=== PATIENT | female | born 1970 | race Caucasian/White ===

== ENCOUNTER 2021-08-05 18:48 | Inpatient (IN) ==
[2021-08-05 20:07] LABS: Bacteria,Urine Few per hpf (None-Few); Bilirubin,Urine Negative (Negative); Blood,Urine Moderate (Negative); Clarity,Urine Turbid (Clear); Color,Urine Light-Yellow (Yellow); Glucose,Urine (UA) 150 mg/dL (Normal); Ketones,Urine Negative (Negative); Leukocyte Esterase,Urine Large (Negative); Nitrite,Urine Negative (Negative); Protein,Urine Negative (Neg-Trace); Specific Gravity,Urine 1.006 (1.010-1.025); Squamous Epithelial Cell,Urine Few per hpf (None-Few); Transitional Epi Cells,Urine Few per hpf (None-Few); Urobilinogen,Urine Normal (Normal); WBC,Urine 50-100 per hpf (0-3)
[2021-08-05] MEDS ORDERED: Isovue-370 500 ML BOTTLE IVP ONE (21:16)
[2021-08-05] MEDS ORDERED: 0.9 % Sodium Chloride 1,000 ML IV ONE (21:16)
[2021-08-05] MEDS ORDERED: Ketorolac 30 MG/ML VIAL IVP ONE (21:18)
[2021-08-05] MEDS ORDERED: Ondansetron 4 MG/2 ML VIAL IVP ONE (21:18)
[2021-08-05] MEDS ORDERED: cefTRIAXone 1,000 MG in Water for inj. (sterile) 10 ML IVP ONE (21:27)
[2021-08-05 21:53] LABS: Basophils % 0.4 %; Eosinophils # 0.1 K/mcL (0.0-0.6); Eosinophils % 0.7 %; Hematocrit 49.5 % (35.3-44.9); Hemoglobin 16.1 g/dL (11.5-15.4); Immature Granulocytes % 0.9 % (0-4); Lymphocytes # 1.8 K/mcL (0.6-4.6); Lymphocytes % 16.6 %; Mean Corpuscular HGB Conc 32.5 g/dL (31.6-35.5); Mean Corpuscular Hemoglobin 29.6 pg (28.0-33.3); Mean Platelet Volume 10.4 fL (9.4-12.4); Monocytes # 0.9 K/mcL (0.0-1.3); Monocytes % 7.8 %; Neutrophils # 8.2 K/mcL (1.6-8.9); Platelet Count 270 K/mcL (140-400); Red Blood Count 5.44 M/mcL (3.82-4.97); Segmented Neutrophils % 73.6 %; White Blood Count 11.1 K/mcL (4.3-11.1)
[2021-08-05 22:11] LABS: Alanine Aminotransferase 20 Units/L (7-52); Albumin 4.3 g/dL (3.5-5.7); Albumin/Globulin Ratio 1.4 (1.1-2.2); Alkaline Phosphatase 71 Units/L (34-104); Aspartate Amino Transferase 12 Units/L (13-39); BUN/Creatinine Ratio 22 (6-26); Bilirubin,Total 0.5 mg/dL (0.3-1.0); Blood Urea Nitrogen 17 mg/dL (6-20); Calcium 9.7 mg/dL (8.6-10.3); Carbon Dioxide 23 mEq/L (23-29); Chloride 102 mEq/L (98-107); Glucose 240 mg/dL (70-105); Osmolality,Calculated 291 (280-300); Potassium 4.3 mEq/L (3.5-5.1); Sodium 136 mEq/L (136-145); Total Protein 7.3 g/dL (6.4-8.9); eGFR For African Americans > 60 (> 60); eGFR For Non-African Americans > 60 (> 60)
[2021-08-06] MEDS ORDERED: Ketorolac 30 MG/ML VIAL IVP PRN (04:18)
[2021-08-06] MEDS ORDERED: *HR* HYDROmorphone 2 MG TABLET PO PRN ×2 (04:18→14:22)
[2021-08-06] MEDS ORDERED: Dextrose Gel 15 GM/37.5 ML TUBE PO PRN ×4 (04:19→14:22)
[2021-08-06] MEDS ORDERED: D5% in Water 1,000 ML IVC PRN ×2 (04:19→14:22)
[2021-08-06] MEDS ORDERED: *HR* Dextrose 50 % in Water (Syg) 50 ML SYRINGE IVP PRN ×2 (04:19→14:22)
[2021-08-06] MEDS ORDERED: Naloxone 0.4 MG/ML INJ IVP PRN ×2 (04:20→14:22)
[2021-08-06] MEDS ORDERED: Acetaminophen 325 MG TABLET PO PRN (04:20)
[2021-08-06] MEDS ORDERED: Ondansetron 4 MG/2 ML VIAL IVP PRN ×2 (04:20→14:22)
[2021-08-06] MEDS: Insulin LISPRO 300 UNITS/3 ML VIAL SUBQ SCH ×4 (05:48→20:14)
[2021-08-06 06:44] LABS: Estimated Average Glucose 269 mg/dl
[2021-08-06] MEDS ORDERED: Venlafaxine XR (24 HR) 150 MG CAP.ER.24H PO SCH (09:00)
[2021-08-06] MEDS ORDERED: cefTRIAXone 1,000 MG in 0.9 % Sodium Chloride Mini Bag 100 ML IVPB SCH (09:00)
[2021-08-06] MEDS ORDERED: Potassium Citrate 10 MEQ TABLET.ER PO SCH (09:00)
[2021-08-06] MEDS ORDERED: Loratadine 10 MG TABLET PO SCH (09:00)
[2021-08-06] MEDS ORDERED: *HR* FentaNYL (PF) 100 MCG/2 ML VIAL IVP PRN (11:35)
[2021-08-06] MEDS ORDERED: *HR* HYDROmorphone PF 0.5 MG/0.5 ML SYRINGE IVP PRN (11:35)
[2021-08-06] MEDS ORDERED: Lidocaine -MPF 2% 5 ML VIAL ONE (11:53)
[2021-08-06] MEDS ORDERED: *HR* Midazolam HCl 2 MG/2 ML VIAL ONE (11:53)
[2021-08-06] MEDS ORDERED: *HR* Propofol 200 MG/20 ML VIAL IVP ONE (11:53)
[2021-08-06] MEDS ORDERED: Ondansetron 4 MG/2 ML VIAL ONE (11:54)
[2021-08-06] MEDS ORDERED: Isovue-300 50ML VIAL ONE (12:01)
[2021-08-06] MEDS ORDERED: Acetaminophen IV 1,000 MG/100 ML BAG IVPB ONE (12:04)
[2021-08-06] MEDS: Ketorolac 30 MG/ML VIAL IVP PRN ×2 (16:24→22:57)
[2021-08-06] MEDS ORDERED: Insulin LISPRO 300 UNITS/3 ML VIAL SUBQ SCH (18:00)
[2021-08-06] MEDS: cefTRIAXone 1,000 MG in 0.9 % Sodium Chloride Mini Bag 100 ML IVPB SCH (19:39)
[2021-08-06] MEDS: hydrOXYzine pamoate 25 MG CAPSULE PO SCH (19:39)
[2021-08-06] MEDS: Potassium Citrate 10 MEQ TABLET.ER PO SCH (19:44)
[2021-08-06] MEDS: Acetaminophen 325 MG TABLET PO PRN (19:44)
[2021-08-06] MEDS ORDERED: hydrOXYzine pamoate 25 MG CAPSULE PO SCH (21:00)
[2021-08-07 01:17] LABS: Hematocrit 45.4 % (35.3-44.9); Mean Corpuscular HGB Conc 31.5 g/dL (31.6-35.5); Mean Corpuscular Hemoglobin 29.4 pg (28.0-33.3); Mean Corpuscular Volume 93.4 fL (83.0-100.0); Mean Platelet Volume 10.1 fL (9.4-12.4); Platelet Count 261 K/mcL (140-400); Red Blood Count 4.86 M/mcL (3.82-4.97); Red Cell Distribution Width 13.9 % (11.5-14.5); White Blood Count 9.9 K/mcL (4.3-11.1)
[2021-08-07 01:19] LABS: Hemoglobin 14.3 g/dL (11.5-15.4)
[2021-08-07 01:45] LABS: BUN/Creatinine Ratio 26 (6-26); Blood Urea Nitrogen 24 mg/dL (6-20); Calcium 8.9 mg/dL (8.6-10.3); Carbon Dioxide 22 mEq/L (23-29); Chloride 102 mEq/L (98-107); Chol/HDL Ratio 4.5 (0-4.9); Cholesterol 180 mg/dL (< 200); Glucose 440 mg/dL (70-105); HDL Cholesterol 40 mg/dL (40-59); Magnesium 1.9 mg/dL (1.6-2.6); Osmolality,Calculated 303 (280-300); Potassium 4.2 mEq/L (3.5-5.1); Sodium 135 mEq/L (136-145); Triglycerides 463 mg/dL (< 150); eGFR For African Americans > 60 (> 60); eGFR For Non-African Americans > 60 (> 60)
[2021-08-07] MEDS: Venlafaxine XR (24 HR) 150 MG CAP.ER.24H PO SCH (08:21)
[2021-08-07] MEDS: Potassium Citrate 10 MEQ TABLET.ER PO SCH ×2 (08:21→16:58)
[2021-08-07] MEDS: cefTRIAXone 1,000 MG in 0.9 % Sodium Chloride Mini Bag 100 ML IVPB SCH ×2 (08:22→21:05)
[2021-08-07] MEDS: Insulin LISPRO 300 UNITS/3 ML VIAL SUBQ SCH ×4 (08:23→21:06)
[2021-08-07] MEDS: Ketorolac 30 MG/ML VIAL IVP PRN (08:24)
[2021-08-07] MEDS: Loratadine 10 MG TABLET PO SCH (08:24)
[2021-08-07] MEDS: Acetaminophen 325 MG TABLET PO PRN (11:50)
[2021-08-07] MEDS: *HR* OxyCODONE/APAP 5/325 TABLET PO PRN (19:46)
[2021-08-07] MEDS: hydrOXYzine pamoate 25 MG CAPSULE PO SCH (21:06)
[2021-08-08 01:59] LABS: Hemoglobin 13.4 g/dL (11.5-15.4); Mean Corpuscular HGB Conc 31.2 g/dL (31.6-35.5); Mean Corpuscular Volume 96.4 fL (83.0-100.0); Mean Platelet Volume 10.2 fL (9.4-12.4); Platelet Count 245 K/mcL (140-400); Red Blood Count 4.46 M/mcL (3.82-4.97); Red Cell Distribution Width 13.8 % (11.5-14.5)
[2021-08-08 02:15] LABS: BUN/Creatinine Ratio 28 (6-26); Blood Urea Nitrogen 27 mg/dL (6-20); Calcium 8.6 mg/dL (8.6-10.3); Carbon Dioxide 24 mEq/L (23-29); Chloride 106 mEq/L (98-107); Glucose 271 mg/dL (70-105); Osmolality,Calculated 301 (280-300); Potassium 4.1 mEq/L (3.5-5.1); Sodium 138 mEq/L (136-145); eGFR For African Americans > 60 (> 60); eGFR For Non-African Americans > 60 (> 60)
[2021-08-08] MEDS: Venlafaxine XR (24 HR) 150 MG CAP.ER.24H PO SCH (07:34)
[2021-08-08] MEDS: Loratadine 10 MG TABLET PO SCH (07:35)
[2021-08-08] MEDS: cefTRIAXone 1,000 MG in 0.9 % Sodium Chloride Mini Bag 100 ML IVPB SCH (07:35)
[2021-08-08] MEDS: Insulin LISPRO 300 UNITS/3 ML VIAL SUBQ SCH ×3 (07:36→17:41)
[2021-08-08] MEDS: Potassium Citrate 10 MEQ TABLET.ER PO SCH ×2 (07:39→17:41)
[2021-08-08] MEDS: *HR* OxyCODONE/APAP 5/325 TABLET PO PRN ×2 (07:39→14:15)
[2021-08-08 10:56] VITALS: O2SAT 91
[2021-08-08 15:09] VITALS: BP 115/74; PULSE 92; TEMP 98.1
== END 2021-08-08 19:33 | disposition home or self-care (01) | DRG 661 ==
LOC: 3BNU 18:48 → EMEROOARM 18:48 → 3BNU 08-06 02:22 → SUATTDRO 08-07 14:41
PROVIDERS: ADMIT Student in an Organized Health Care Education/Training Program; ATTEND Internal Medicine

== ENCOUNTER 2022-04-30 12:55 | Observation (INO) ==
[2022-04-30] MEDS ORDERED: Aspirin 325 MG TABLET PO ONE (13:39)
[2022-04-30 14:42] LABS: Basophils # 0.1 K/mcL (0.0-0.2); Basophils % 0.7 %; Eosinophils # 0.5 K/mcL (0.0-0.6); Eosinophils % 5.1 %; Hematocrit 44.7 % (35.3-44.9); Hemoglobin 14.5 g/dL (11.5-15.4); Immature Granulocytes % 1.2 % (0-4); Lymphocytes # 2.6 K/mcL (0.6-4.6); Lymphocytes % 28.4 %; Mean Corpuscular HGB Conc 32.4 g/dL (31.6-35.5); Mean Corpuscular Hemoglobin 29.8 pg (28.0-33.3); Mean Platelet Volume 9.9 fL (9.4-12.4); Monocytes # 0.7 K/mcL (0.0-1.3); Monocytes % 7.2 %; Neutrophils # 5.2 K/mcL (1.6-8.9); Platelet Count 272 K/mcL (140-400); Red Blood Count 4.86 M/mcL (3.82-4.97); Red Cell Distribution Width 13.9 % (11.5-14.5); Segmented Neutrophils % 57.4 %; White Blood Count 9.1 K/mcL (4.3-11.1)
[2022-04-30 14:56] LABS: BUN/Creatinine Ratio 21 (6-26); Blood Urea Nitrogen 17 mg/dL (6-20); Calcium 9.9 mg/dL (8.6-10.3); Carbon Dioxide 27 mEq/L (23-29); Chloride 102 mEq/L (98-107); Glucose 148 mg/dL (70-105); Osmolality,Calculated 290 (280-300); Sodium 138 mEq/L (136-145)
[2022-04-30 14:57] LABS: Troponin I < 0.03 ng/mL (< 0.04)
[2022-04-30] MEDS ORDERED: Naloxone 0.4 MG/ML INJ IVP PRN (15:24)
[2022-04-30] MEDS ORDERED: *HR* Dextrose 50 % in Water (Syg) 50 ML SYRINGE IVP PRN (16:34)
[2022-04-30] MEDS ORDERED: D5% in Water 1,000 ML IVC PRN (16:34)
[2022-04-30] MEDS ORDERED: Dextrose Gel 15 GM/37.5 ML TUBE PO PRN ×2 (16:34)
[2022-04-30] MEDS ORDERED: Insulin LISPRO 300 UNITS/3 ML VIAL SUBQ SCH (21:00)
[2022-04-30] MEDS: Nitroglycerin 0.4 MG TAB.SUBL SL PRN ×2 (21:37→22:10)
[2022-05-01 02:12] LABS: BUN/Creatinine Ratio 19 (6-26); Blood Urea Nitrogen 15 mg/dL (6-20); Calcium 9.1 mg/dL (8.6-10.3); Carbon Dioxide 22 mEq/L (23-29); Chloride 104 mEq/L (98-107); Chol/HDL Ratio 7.9 (0-4.9); Cholesterol 292 mg/dL (< 200); Glucose 274 mg/dL (70-105); HDL Cholesterol 37 mg/dL (40-59); Magnesium 1.6 mg/dL (1.6-2.6); Osmolality,Calculated 299 (280-300); Potassium 3.8 mEq/L (3.5-5.1); Sodium 139 mEq/L (136-145); Triglycerides 959 mg/dL (< 150)
[2022-05-01 03:24] LABS: Estimated Average Glucose 169 mg/dl; Hemoglobin A1C 7.5 %
[2022-05-01] MEDS ORDERED: *HR* Enoxaparin 40 MG/0.4 ML SYRINGE SQ SCH (06:00)
[2022-05-01] MEDS ORDERED: Regadenoson 0.4 MG/5 ML SYRINGE IVP ONE (06:03)
[2022-05-01] MEDS: Insulin LISPRO 300 UNITS/3 ML VIAL SUBQ SCH ×2 (07:09→12:14)
[2022-05-01] MEDS ORDERED: Aspirin 81 MG TAB.CHEW PO SCH (09:00)
[2022-05-01] MEDS ORDERED: Acetaminophen 325 MG TABLET PO PRN (10:21)
[2022-05-01 15:53] VITALS: BP 112/79; PULSE 107; TEMP 97.8; O2SAT 91
== END 2022-05-01 16:53 | disposition home or self-care (01) ==
LOC: 3BNU 12:55 → EMEROOARM 12:55 → SUATTDRO 15:54 → 3BNU 16:39
PROVIDERS: ADMIT Pharmacist; ATTEND Internal Medicine